=== PATIENT | male | born 1955 | race Two or more races ===

== ENCOUNTER 2018-12-05 09:10 | Outpatient (CLI) | payer MEDICARE ==
--- NOTE | 2018-12-05 16:15 | Consultation ---
DATE OF CONSULTATION: 12/05/2018 CONSULTING PHYSICIAN: Carrington Frank M.D. REFERRING PHYSICIAN: Tony Briggs M.D. CHIEF COMPLAINT: History of duodenal ulcer, referral for endoscopy. HISTORY OF PRESENT ILLNESS: This is a very pleasant 63-year-old male with past medical history of GERD, duodenal ulcer, apparently required surgery back in many years ago. Still having some epigastric abdominal pain, so endoscopy. Last colonoscopy was in February 2017. The patient had two polyps per notes of another GI doctor and also evidence of hemorrhoids. PAST MEDICAL HISTORY: 1. History of duodenal ulcer. 2. Hemorrhoids. 3. Two colonic polyps. PAST SURGICAL HISTORY: Surgery for duodenal ulcer. MEDICATIONS: None. FAMILY HISTORY: Mother had cancer, but they are not sure exactly what kind of cancer. SOCIAL HISTORY: The patient drinks socially, but denies any tobacco usage or IV drug abuse. ALLERGIES: No known drug allergies. REVIEW OF SYSTEMS: A 10-point review of systems was performed and pertinent positives in HPI. PHYSICAL EXAMINATION: VITAL SIGNS: Stable, afebrile. HEENT: Normocephalic and atraumatic. Sclerae anicteric. NECK: Supple. No evidence of obvious lymphadenopathy. CARDIOVASCULAR: Regular rate and rhythm. Plus S1 and S2. No obvious murmur. LUNGS: Clear to auscultation bilaterally. ABDOMEN: Positive bowel sounds. Soft and nontender. No rebound. No guarding. No peritoneal sign. EXTREMITIES: No cyanosis. No clubbing. No edema. ASSESSMENT AND PLAN: This is a 63-year-old male with past medical history of duodenal ulcer, now continuously having some epigastric abdominal pain, had an abdominal ultrasound, which was nondiagnostic. Laboratories look normal. The patient is requesting endoscopy for evaluation of his pain and also to follow up on the duodenal ulcer. Plan to do an endoscopy tomorrow. The patient was informed of the risks and benefits of procedure and he agreed. In terms of his colonoscopy, the last one was in 2016 and he had two polyps, so the next one would be in 2021. The patient was informed to follow up. I want to thank, Dr. Tony Briggs, for this kind referral. Carrington Trish Frank DR: JAMES JOB#: [id number] CC: Tony Briggs M.D.; Fax#: [phone]
[2018-12-06] MEDS ORDERED: VITAMIN D1000 UNI1 ORAL (07:31)
[2018-12-06] MEDS ORDERED: MULTIVITAMINS1 EAC2 ORAL (07:31)
== END 2018-12-05 11:10 | disposition home or self-care (01) ==
LOC: PAN 09:10
DX: R10.13 Epigastric pain (principal); K21.9 Gastro-esophageal reflux disease without esophagitis; Z86.010 Personal history of colon polyps; Z80.9 Family history of malignant neoplasm, unspecified

== ENCOUNTER 2018-12-06 06:58 | Day surgery (SDC) | payer MEDICARE ==
[2018-12-06] VITALS (8 sets, daily range): BP systolic 105–122; BP diastolic 58–71
[~2018-12-06] VITALS: Ht 172.7 cm; Wt 71.7 kg
[2018-12-06] MEDS ORDERED: DiphenhydrAMINE 50mg/ml Inj IVP PRN (07:30)
[2018-12-06] MEDS ORDERED: Atropine Inj 1mg/10ml Syr IV PRN (07:30)
[2018-12-06] MEDS ORDERED: Midazolam 2mg/2ml Inj IVP PRN (07:30)
[2018-12-06] MEDS ORDERED: fentaNYL 100 mcg/2 mL IV PRN (07:30)
[2018-12-06] MEDS ORDERED: VITAMIN D1000 UNI1 ORAL (07:31)
[2018-12-06] MEDS ORDERED: MULTIVITAMINS1 EAC2 ORAL (07:31)
[2018-12-06] MEDS ORDERED: Propofol 200mg/20ml IV ONE (08:30)
[2018-12-06] MEDS ORDERED: Lidocaine 1% MPF 10mg/ml 5ml ONE (08:30)
--- NOTE | 2018-12-06 08:54 | Pre-Procedure Note/Attestation ---
Pre-Procedure Note/Attestation Complete Prior to Procedure Planned Procedure: not applicable Procedure Narrative: egd Indications for Procedure Pre-Operative Diagnosis: ulcer Attestation I attest that I discussed the nature of the procedure; its benefits; risks and complications; and alternatives (and the risks and benefits of such alternatives ), prior to the procedure, with the patient (or the patient's legal sales representative printing paper). I attest that, if there was a reasonable possibility of needing a blood transfusion, the patient (or the patient's legal sales representative printing paper) was given the [facility] standardized written summary, pursuant to the [place] Blood Safety Act ([place] Health and Safety Code # 1645, as amended). I attest that I re-evaluated the patient just prior to the surgery and that there has been no change in the patient's H&P, except as documented below: Carrington Frank MD Dec 06, 2018 08:54
--- NOTE | 2018-12-06 08:55 | Short Stay Surgery H&P ---
History of Present Illness History of Present Illness Chief Complaint see recent office note HPI Terry Boggs is a 63 year old male who was admitted on for ULCER Patient History Allergies: Coded Allergies: No Known Allergies (Unverified , 12/06/18) Medication History Scheduled Cholecalciferol (Vitamin D3)* (Vitamin D*), 1,000 UNIT ORAL DAILY, (Reported) Multivitamins* (Multivitamins*), 1 TAB ORAL DAILY, (Reported) Physical Exam Vital Signs Last Vital Signs Date Time Temp Pulse Resp B/P (MAP) Pulse Ox O2 Delivery O2 Flow Rate FiO2 12/06/18 07:39 Room Air 12/06/18 07:29 97.1 60 18 122/65 99 Plan Attestation Are the patient's medical conditions optimized for surgery? Carrington Frank MD Dec 06, 2018 08:55
--- NOTE | 2018-12-06 09:03 | Endoscopy Procedure Note ---
Endoscopy Procedure Note General Indication for Procedure: gastric ulcer Procedures Performed: EGD Operative Findings/Diagnosis: gastritis Specimen: yes Pt Tolerated Procedure Well: Yes Estimated Blood Loss: none Anesthesia Anesthesiologist: kierra Anesthesia: MAC Inserted Devices Implant(s) used?: No GI Core Measures 50 yrs or older w/o bx or poly: Not Applicable 10yrs. F/U recommended: Not Applicable Carrington Frank MD Dec 06, 2018 09:03
--- NOTE | 2018-12-06 09:19 | Anethesia Preoperative Eval ---
Anesthesia Pre-op PMH/ROS General Date of Evaluation: Dec 06, 2018 Time of Evaluation: 08:30 Anesthesiologist: demarcus ASA Score: ASA 2 Mallampati Score Class I : Soft palate, uvula, fauces, pillars visible Class II: Soft palate, uvula, fauces visible Class III: Soft palate, base of uvula visible Class IV: Only hard plate visible Mallampati Classification: Class II Surgeon: cleve Diagnosis: abdominal pain Surgical Procedure: egd Anesthesia History: none Family History: no anesthesia problems Allergies: Coded Allergies: No Known Allergies (Unverified , 12/06/18) Medications: see eMAR Patient NPO?: Yes Past Medical History Cardiovascular: Reports: arrhythmia Anesthesia Pre-op Phys. Exam Physician Exam Last Vital Signs Date Time Temp Pulse Resp B/P (MAP) Pulse Ox O2 Delivery O2 Flow Rate FiO2 12/06/18 07:39 Room Air 12/06/18 07:29 97.1 60 18 122/65 99 Constitutional: NAD Neurologic: CN 2-12 intact Cardiovascular: RRR Respiratory: CTA Airway Exam Mallampati Score: Class II MO: full Neck: flexible TMD: 2fb ROM: full Anesthesia Pre-op A/P Studies Pre-op Studies: EKG - sinus bradycardia Risk Assessment & Plan Assessment: asa2 Plan: mac Status Change Before Surgery: No Pre-Antibiotics Drug: Mary Patel MD Dec 06, 2018 09:19
--- NOTE | 2018-12-06 09:30 | Procedure Note ---
DATE OF PROCEDURE: 12/06/2018 SURGEON: Carrington Frank M.D. PROCEDURE: Upper endoscopy with biopsy. ANESTHESIA: Per Dr. Mary Kowalski. INSTRUMENT: Olympus adult flexible upper endoscope. INDICATION: History of gastric ulcerations. REASON FOR PROCEDURE: The procedure, risks, benefits, and possible consequences, including hemorrhage, aspiration, perforation and infection, and alternative treatments, were explained to the patient/legal guardian by Dr. Carrington Frank and the patient/legal guardian understood and accepted these risks. PROCEDURE IN DETAIL: After informed consent was obtained and the patient was adequately sedated, Olympus upper endoscope was advanced from the mouth into the second portion of the duodenum and retroflexion was performed in the stomach. The patient has [id number] gastritis especially in the body of the stomach. There was a severe gastritis. This is highly suspicious for H. pylori infection. Random biopsy from body and antrum was obtained. There was no evidence of active ulceration at this time. No evidence of any esophageal or gastric varices. The patient tolerated the procedure well without any complication. SUMMARY OF FINDINGS: Gastritis within the body and the antrum. Both were biopsied. RECOMMENDATIONS: Follow up pathology and treat accordingly. Carrington Frank M.D. DR: CHEIKH JOB#: [id number] CC:
--- NOTE | 2018-12-06 10:07 | Immediate Post-Op Evaluation ---
Immediate Post-Op Evalulation Immediate Post-Op Evalulation Procedure: egd w/bx Date of Evaluation: Dec 06, 2018 Time of Evaluation: 09:22 IV Fluids: 625ml 0.9ns Blood Products: none Estimated Blood Loss: negligible Blood Pressure Systolic: 105 Blood Pressure Diastolic: 66 Pulse Rate: 66 Respiratory Rate: 18 O2 Sat by Pulse Oximetry: 100 Temperature (Fahrenheit): 97.3 Pain Score (1-10): 0 Nausea: No Vomiting: No Complications none Patient Status: awake, reacts, patent Hydration Status: adequate Drug: Mary Patel MD Dec 06, 2018 10:07
--- NOTE | 2018-12-06 10:09 | 48 Hour Post Anesthesia Eval ---
Post Anesthesia Evaluation Procedure: egd w/bx Date of Evaluation: Dec 06, 2018 Time of Evaluation: 09:24 Blood Pressure Systolic: 110 0: 65 Pulse Rate: 61 Respiratory Rate: 18 Temperature (Fahrenheit): 97.3 O2 Sat by Pulse Oximetry: 100 Airway: patent Nausea: No Vomiting: No Pain Intensity: 0 Hydration Status: adequate Cardiopulmonary Status: stable Mental Status/LOC: patient returned to baseline Post-Anesthesia Complications: none Follow-up care needed: N/A Mary An MD Dec 06, 2018 10:09
== END 2018-12-06 11:05 | disposition home or self-care (01) ==
LOC: GAS 06:58
DX: K29.50 Unspecified chronic gastritis without bleeding (principal); B96.81 Helicobacter pylori [H. pylori] as the cause of diseases classified elsewhere; Z79.899 Other long term (current) drug therapy; R00.1 Bradycardia, unspecified
CPT/HCPCS: 43239; 93005; J2704; 94003; 94150

== ENCOUNTER 2018-12-26 08:56 | Outpatient (CLI) | payer MEDICARE ==
[~2018-12-26 08:56] MED LIST: MULTIVITAMINS1 EAC2 ORAL; VITAMIN D1000 UNI1 ORAL
--- NOTE | 2018-12-26 10:42 | General Progress Note ---
Assessment/Plan Assessment/Plan: HP positive treat with Quatro therapy RTC 3 months Subjective ROS Limited/Unobtainable: Yes Allergies: Coded Allergies: No Known Allergies (Unverified , 12/06/18) Objective General Appearance: alert EENT: normal ENT inspection Neck: supple Cardiovascular: normal rate Respiratory/Chest: lungs clear Abdomen: normal bowel sounds, non tender, soft Extremities: non-tender Carrington Frank MD Dec 26, 2018 10:42
[2018-12-26 13:57] VITALS: BP 116/65
== END 2018-12-26 10:56 | disposition home or self-care (01) ==
LOC: PAN 08:56
DX: A04.9 Bacterial intestinal infection, unspecified (principal); B96.81 Helicobacter pylori [H. pylori] as the cause of diseases classified elsewhere
CPT/HCPCS: 99202